=== PATIENT | female | born 1935 | race American Indian/Alaskan Native ===

== ENCOUNTER 2018-09-22 17:04 | Inpatient (IN) | payer MEDICARE ==
--- NOTE | 2018-09-22 17:55 | Emergency Department Report ---
ED General Adult HPI - General Chief complaint: Arrhythmia/Palpitations Stated complaint: DOC ORDERED/HEART RATE SLOW Time Seen by Provider: 09/22/18 17:42 Source: patient, family, RN notes reviewed Mode of arrival: Ambulatory Limitations: No Limitations - History of Present Illness Initial comments: Primary care Dr.: Dr Clifton Cardiology: Dr Cindy Rodriguez This is an 82-year-old female. The patient is not known to this provider previously. She may have a history of hypertension. Was recently started on metoprolol, but apparently is not taking this medication. She is sent to the emergency room for evaluation by her private snack bar cook for evaluation of high-grade heart block. The patient at this moment denies headache, neck pain, chest pain, abdominal pain, shortness of breath, weakness, dizziness, numbness, does admit to dysuria, but otherwise denies symptoms at this time. She's not sure what her bradycardia started. -: unknown Severity scale (0 -10): 0 Consistency: constant Improves with: none Worsens with: none Associated Symptoms: denies other symptoms - Related Data Previous Rx's Medication Instructions Recorded Last Taken Type Acetaminophen [Acetaminophen TAB] 650 mg PO Q4H PRN tablet 09/23/18 Unknown Rx amLODIPine [Norvasc] 5 mg PO QDAY tablet 09/23/18 Unknown Rx Allergies Allergy/AdvReac Type Severity Reaction Status Date / Time No Known Allergies Allergy Verified 09/22/18 22:14 ED Review of Systems ROS: Stated complaint: DOC ORDERED/HEART RATE SLOW Other details as noted in HPI Constitutional: denies: fever Eyes: denies: vision change ENT: denies: epistaxis Respiratory: denies: cough Cardiovascular: denies: chest pain, palpitations Gastrointestinal: denies: abdominal pain, nausea, vomiting Genitourinary: dysuria Musculoskeletal: denies: back pain Skin: denies: lesions Neurological: denies: weakness, numbness, paresthesias, confusion Psychiatric: denies: anxiety ED Past Medical Hx - Social History Smoking Status: Unknown if ever smoked Substance Use Type: None - Medications Home Medications: Home Medications Medication Instructions Recorded Confirmed Last Taken Type Acetaminophen [Acetaminophen TAB] 650 mg PO Q4H PRN tablet 09/23/18 Unknown Rx amLODIPine [Norvasc] 5 mg PO QDAY tablet 09/23/18 Unknown Rx ED Physical Exam - General Limitations: No Limitations General appearance: alert, in no apparent distress - Head Head exam: Present: atraumatic, normocephalic - Eye Eye exam: Present: normal appearance, EOMI. Absent: nystagmus - ENT ENT exam: Present: normal exam, normal orophraynx, mucous membranes moist - Neck Neck exam: Present: normal inspection, full ROM. Absent: tenderness, meningismus - Respiratory Respiratory exam: Present: normal lung sounds bilaterally. Absent: respiratory distress - Cardiovascular Cardiovascular Exam: Present: bradycardia. Absent: tachycardia, systolic murmur, diastolic murmur, rubs, gallop - GI/Abdominal GI/Abdominal exam: Present: soft, normal bowel sounds. Absent: distended, tend erness, guarding, rigid - Extremities Exam Extremities exam: Present: normal inspection, full ROM, other (2+ pulses noted in the bilateral upper, lower extremities. Compartments soft. No long bony tenderness. The pelvis is stable.). Absent: pedal edema, joint swelling, calf tenderness - Back Exam Back exam: Present: normal inspection, full ROM. Absent: tenderness, CVA tenderness (R), paraspinal tenderness, vertebral tenderness - Neurological Exam Neurological exam: Present: alert, other (Extraocular movements intact. Tongue midline. No facial droop. Facial sensation intact to light touch in the V1, V2, V3 distribution bilaterally. 5 and 5 strength in 4 extremities.. Sensation is intact to light touch in 4 extremities.). Absent: motor sensory deficit - Psychiatric Psychiatric exam: Present: normal affect, normal mood - Skin Skin exam: Present: warm, dry, intact, normal color. Absent: rash ED Course Vital Signs 09/22/18 09/22/18 09/22/18 17:19 19:39 21:00 Temperature 98.2 F 98 F Pulse Rate 40 L 40 L 107 H Pulse Rate [ Left Radial] Respiratory 18 14 23 Rate Blood Pressure 158/74 Blood Pressure 123/66 [Right] O2 Sat by Pulse 100 99 92 Oximetry 09/22/18 09/22/18 09/23/18 22:00 23:00 00:00 Temperature Pulse Rate 40 L 38 L 40 L Pulse Rate [ Left Radial] Respiratory 16 16 13 Rate Blood Pressure 164/70 134/69 176/71 Blood Pressure [Right] O2 Sat by Pulse Oximetry 09/23/18 09/23/18 09/23/18 01:00 03:00 04:00 Temperature Pulse Rate 39 L 38 L 39 L Pulse Rate [ Left Radial] Respiratory 14 15 14 Rate Blood Pressure 131/80 191/65 146/76 Blood Pressure [Right] O2 Sat by Pulse 100 100 Oximetry 09/23/18 09/23/18 09/23/18 06:00 07:00 08:00 Temperature Pulse Rate 39 L 37 L Pulse Rate [ Left Radial] Respiratory 17 12 Rate Blood Pressure 119/79 89/41 212/62 Blood Pressure [Right] O2 Sat by Pulse 100 99 100 Oximetry 09/23/18 09/23/18 09/23/18 09:00 10:00 11:00 Temperature Pulse Rate 39 L Pulse Rate [ Left Radial] Respiratory 11 L Rate Blood Pressure 149/69 124/66 124/66 Blood Pressure [Right] O2 Sat by Pulse 100 100 99 Oximetry 09/23/18 09/23/18 09/23/18 12:00 13:00 14:00 Temperature Pulse Rate 38 L 38 L Pulse Rate [ 45 L Left Radial] Respiratory 12 13 20 Rate Blood Pressure 124/66 110/66 Blood Pressure [Right] O2 Sat by Pulse 100 100 Oximetry 09/23/18 09/23/18 09/23/18 15:28 16:00 17:00 Temperature Pulse Rate 42 L 75 Pulse Rate [ Left Radial] Respiratory 14 17 Rate Blood Pressure 110/66 126/55 126/55 Blood Pressure [Right] O2 Sat by Pulse 87 Oximetry 09/23/18 09/23/18 09/23/18 18:00 18:56 21:08 Temperature 98.0 F 98.5 F Pulse Rate 44 L 48 L 47 L Pulse Rate [ Left Radial] Respiratory 20 17 Rate Blood Pressure 126/55 Blood Pressure 120/78 [Right] O2 Sat by Pulse 99 99 Oximetry - Reevaluation(s) Reevaluation #1: 09/22/18 19:11 Differential diagnosis, including but not limited to: Hyperkalemia, hypokalemia, thyroid derangement, electrolyte derangement, conduction system derangement Assessment and plan: 82-year-old female with asymptomatic bradycardia, high- grade heart block, suspect Mobitz type II heart block versus complete heart block. The patient is afebrile, with reassuring vital signs, and is currently in no acute distress. Her snack bar cook has been contacted, and he will follow in consultation. Screening laboratory studies pending, we will admit to the medical service once her laboratory studies have resulted. Given high-grade heart block, will require placement into the intensive care unit or stepdown unit for close cardiac monitoring. Reevaluation #2: 09/22/18 19:41 Dr Casper Cedeno to admit to medical service Dr Len Mathew agrees with placement into the IMCU Potassium 5.3, hemolyzed as per the laboratory. Reevaluation #3: 09/22/18 19:43 X-ray of the chest appears to be unremarkable for acute disease. We will defer to the inpatient team to follow-up on the patient's urinalysis. ED Medical Decision Making - Lab Data Result diagrams: 09/22/18 17:34 09/23/18 08:09 Vital Signs 09/22/18 17:19 Temperature 98.2 F Pulse Rate 40 L Respiratory 18 Rate O2 Sat by Pulse 100 Oximetry Lab Results 09/22/18 09/22/18 09/22/18 Range/Units 17:34 17:34 17:34 WBC 5.6 (4.5-11.0) K/mm3 RBC 3.71 (3.65-5.03) M/mm3 Hgb 12.0 (10.1-14.3) gm/dl Hct 36.3 (30.3-42.9) % MCV 98 H (79-97) fl MCH 32 (28-32) pg MCHC 33 (30-34) % RDW 14.9 (13.2-15.2) % Plt Count 283 (140-440) K/mm3 PT 13.3 (12.2-14.9) Sec. INR 0.95 (0.87-1.13) APTT 30.9 (24.2-36.6) Sec. Sodium 144 (137-145) mmol/L Chloride 104.5 (98-107) mmol/L Carbon Dioxide 25 (22-30) mmol/L BUN 24 H (7-17) mg/dL Creatinine 1.1 (0.7-1.2) mg/dL Estimated GFR 48 ml/min BUN/Creatinine Ratio 22 % Glucose 85 (65-100) mg/dL Calcium 9.1 (8.4-10.2) mg/dL Phosphorus 4.10 (2.5-4.5) mg/dL Magnesium 2.50 H (1.7-2.3) mg/dL Troponin T < 0.010 (0.00-0.029) ng/mL TSH (0.270-4.200) mlU/mL 09/22/18 Range/Units 18:03 WBC (4.5-11.0) K/mm3 RBC (3.65-5.03) M/mm3 Hgb (10.1-14.3) gm/dl Hct (30.3-42.9) % MCV (79-97) fl MCH (28-32) pg MCHC (30-34) % RDW (13.2-15.2) % Plt Count (140-440) K/mm3 PT (12.2-14.9) Sec. INR (0.87-1.13) APTT (24.2-36.6) Sec. Sodium (137-145) mmol/L Chloride (98-107) mmol/L Carbon Dioxide (22-30) mmol/L BUN (7-17) mg/dL Creatinine (0.7-1.2) mg/dL Estimated GFR ml/min BUN/Creatinine Ratio % Glucose (65-100) mg/dL Calcium (8.4-10.2) mg/dL Phosphorus (2.5-4.5) mg/dL Magnesium (1.7-2.3) mg/dL Troponin T (0.00-0.029) ng/mL TSH 3.050 (0.270-4.200) mlU/mL - EKG Data 09/22/18 19:08 EKG shows atrial rate of approximately 75 bpm, ventricular rate, 40 bpm, borderline rightward axis, wide QRS, right bundle branch block, high degree block suggested, suspect complete, third-degree heart block. Not consistent with ST elevation myocardial infarction. - Radiology Data Radiology results: pending Critical care attestation.: If time is entered above; I have spent that time in minutes in the direct care of this critically ill patient, excluding procedure time. ED Disposition Clinical Impression: Heart block Disposition: OP ADMIT IP TO THIS HOSP Is pt being admited?: Yes Condition: Good
[2018-09-22 18:14] LABS: Hematocrit 36.3 % (30.3-42.9); Mean Corpuscular HGB Conc 33 % (30-34); Mean Corpuscular Volume 98 fl (79-97); Platelet Count 283 K/mm3 (140-440); Red Blood Count 3.71 M/mm3 (3.65-5.03); Red Cell Distribution Width 14.9 % (13.2-15.2)
[2018-09-22 18:26] LABS: INR 0.95 (0.87-1.13); Partial Thromboplastin Time 30.9 Sec. (24.2-36.6)
--- NOTE | 2018-09-22 20:39 | XRay Report ---
PROCEDURE: Chest. TECHNIQUE: Single frontal view. HISTORY: Cough, heart block. COMPARISONS: None. FINDINGS: The heart size is mildly enlarged. There is calcification in the thoracic aorta. The lungs are clear and well expanded. There are no pleural effusions. The soft tissues and regional skeleton are unremar kable. IMPRESSION: No evidence of acute disease. This document is electronically signed by Nik Marques MD., September 22 2018 08:37:44 PM ET
[2018-09-22 20:40] LABS: BUN/Creatinine Ratio TNR; Blood Urea Nitrogen TNR mg/dL (7-17)
[2018-09-22 20:41] LABS: Calcium TNR mg/dL (8.4-10.2); Hemolysis Index TNR
[2018-09-22 21:34] LABS: Bacteria,Urine 1+ /HPF (Negative); Bilirubin,Urine NEG (Negative); Blood,Urine NEG (Negative); Color,Urine Colorless (Yellow); Protein,Urine <15 mg/dL mg/dL (Negative); Urobilinogen,Urine < 2.0 mg/dL (<2.0)
[2018-09-22 21:54] LABS: Albumin 4.2 g/dL (3.9-5); Calcium 9.1 mg/dL (8.4-10.2)
[2018-09-22] MEDS ORDERED: ZOFRAN IV PRN (22:08)
[2018-09-22] MEDS ORDERED: NORCO 5/325 PO PRN (22:08)
[2018-09-22] MEDS ORDERED: TYLENOL PO PRN (22:08)
[2018-09-22] MEDS ORDERED: SODIUM CHLORIDE FLUSH SYRINGE 10 ML IV PRN (22:08)
[2018-09-22] MEDS ORDERED: NACL 0.45% 500 ML IV SCH (23:00)
--- NOTE | 2018-09-22 23:16 | History and Physical Report ---
History of Present Illness Date of examination: 09/22/18 Date of admission: 09/22/18 19:42 Chief complaint: "My doctor sent me here" History of present illness: Patient is a 82-year-old -Citizen Of [place] female with history of hypertension who was sent to the ER by her primary care doctor on account of abnormal EKG finding. Patient stated that she went for her regular clinic checkup and during her evaluation, she was found to have abnormal EKG finding for which she was sent to the ER for further evaluation. She stated that for the past few days, that her equilibrium has been off. She denies headache, nausea, vomiting, lightheadedness, syncope or loss of consciousness. No chest pain, shortness of breath, palpitation, cough, sore throat, runny nose, fever, chills, leg swelling, orthopnea or PND. No abdominal pain, constipation, diarrhea, dysuria or frequency. In the ED, her EKG was suggestive of high-grade heart block Past History Past Medical History: hypertension Past Surgical History: No surgical history Social history: smoking (patient has 20 years history of cigarette smoking. She currently smokes few sticks per day. She denies alcohol or illicit drug use) Family history: other (reviewed and noncontributory) Medications and Allergies Allergies Allergy/AdvReac Type Severity Reaction Status Date / Time No Known Allergies Allergy Verified 09/22/18 22:14 Home Medications Medication Instructions Recorded Confirmed Last Taken Type Metoprolol [Lopressor] 25 mg PO DAILY 09/22/18 09/22/18 Unknown History Active Meds: Active Medications Acetaminophen (Tylenol) 650 mg PO Q4H PRN PRN Reason: Pain MILD(1-3)/Fever >100.5/ANSARI Acetaminophen/Hydrocodone Bitart ([place] 5/325) 1 each PO Q6H PRN PRN Reason: Pain, Moderate (4-6) Amlodipine Besylate (Norvasc) 5 mg PO QDAY ARVIND Sodium Chloride (Nacl 0.45%) 500 mls @ 75 mls/hr IV DIRECT ARVIND Ondansetron HCl (Zofran) 4 mg IV Q8H PRN PRN Reason: Nausea And Vomiting Sodium Chloride (Sodium Chloride Flush Syringe 10 Ml) 10 ml IV BID ARVIND Sodium Chloride (Sodium Chloride Flush Syringe 10 Ml) 10 ml IV PRN PRN PRN Reason: LINE FLUSH Review of Systems All systems: negative (except as documented in the HPI, all other systems were reviewed and negative) Exam - Constitutional Vitals: Temp Pulse Resp BP Pulse Ox 98 F 40 L 16 164/70 92 09/22/18 19:39 09/22/18 22:00 09/22/18 22:00 09/22/18 22:00 09/22/18 21:00 General appearance: Present: no acute distress, well-nourished - EENT Eyes: Present: PERRL ENT: hearing intact, clear oral mucosa - Neck Neck: Present: supple, normal ROM - Respiratory Respiratory effort: normal Respiratory: bilateral: CTA - Cardiovascular Rhythm: regularly irregular (with bradycardia) Heart Sounds: Present: S1 & S2. Absent: rub, click - Extremities Extremities: pulses symmetrical, No edema Peripheral Pulses: within normal limits - Abdominal General gastrointestinal: Present: soft, non-tender, non-distended, normal bowel sounds Female genitourinary: Present: deferred - Integumentary Integumentary: Present: clear, warm, dry - Musculoskeletal Musculoskeletal: gait normal, strength equal bilaterally - Psychiatric Psychiatric: appropriate mood/affect, intact judgment & insight - Neurologic Neurologic: CNII-XII intact, moves all extremities Results - Labs CBC & Chem 7: 09/22/18 17:34 09/22/18 21:10 Labs: Laboratory Last Values WBC 5.6 K/mm3 (4.5-11.0) 09/22/18 17:34 RBC 3.71 M/mm3 (3.65-5.03) 09/22/18 17:34 Hgb 12.0 gm/dl (10.1-14.3) 09/22/18 17:34 Hct 36.3 % (30.3-42.9) 09/22/18 17:34 MCV 98 fl (79-97) H 09/22/18 17:34 MCH 32 pg (28-32) 09/22/18 17:34 MCHC 33 % (30-34) 09/22/18 17:34 RDW 14.9 % (13.2-15.2) 09/22/18 17:34 Plt Count 283 K/mm3 (140-440) 09/22/18 17:34 PT 13.3 Sec. (12.2-14.9) 09/22/18 17:34 INR 0.95 (0.87-1.13) 09/22/18 17:34 APTT 30.9 Sec. (24.2-36.6) 09/22/18 17:34 Sodium 147 mmol/L (137-145) H 09/22/18 21:10 Potassium 4.3 mmol/L (3.6-5.0) 09/22/18 21:10 Chloride 105.7 mmol/L (98-107) 09/22/18 21:10 Carbon Dioxide 31 mmol/L (22-30) H 09/22/18 21:10 Anion Gap 15 mmol/L 09/22/18 21:10 BUN 21 mg/dL (7-17) H 09/22/18 21:10 Creatinine 1.1 mg/dL (0.7-1.2) 09/22/18 21:10 Estimated GFR 58 ml/min 09/22/18 21:10 BUN/Creatinine Ratio 19 % 09/22/18 21:10 Glucose 97 mg/dL (65-100) 09/22/18 21:10 Calcium 9.1 mg/dL (8.4-10.2) 09/22/18 21:10 Phosphorus 4.10 mg/dL (2.5-4.5) 09/22/18 17:34 Magnesium 2.50 mg/dL (1.7-2.3) H 09/22/18 17:34 Total Bilirubin 0.50 mg/dL (0.1-1.2) 09/22/18 21:10 AST 24 units/L (5-40) 09/22/18 21:10 ALT 43 units/L (7-56) 09/22/18 21:10 Alkaline Phosphatase 109 units/L (35-129) 09/22/18 21:10 Total Creatine Kinase TNR 09/22/18 17:34 Troponin T < 0.010 ng/mL (0.00-0.029) 09/22/18 17:34 Total Protein 7.4 g/dL (6.3-8.2) 09/22/18 21:10 Albumin 4.2 g/dL (3.9-5) 09/22/18 21:10 Albumin/Globulin Ratio 1.3 % 09/22/18 21:10 TSH 3.050 mlU/mL (0.270-4.200) 09/22/18 18:03 Urine Color Colorless (Yellow) 09/22/18 21:02 Urine Turbidity Clear (Clear) 09/22/18 21:02 Urine pH 9.0 (5.0-7.0) H 09/22/18 21:02 Ur Specific [place] 1.006 (1.003-1.030) 09/22/18 21:02 Urine Protein <15 mg/dl mg/dL (Negative) 09/22/18 21:02 Urine Glucose (UA) Neg mg/dL (Negative) 09/22/18 21:02 Urine Ketones Neg mg/dL (Negative) 09/22/18 21:02 Urine Blood Neg (Negative) 09/22/18 21: Urine Nitrite Neg (Negative) 09/22/18 21: Urine Bilirubin Neg (Negative) 09/22/18 21: Urine Urobilinogen < 2.0 mg/dL (<2.0) 09/22/18 21:02 Ur Leukocyte Esterase Neg (Negative) 09/22/18 21:02 Urine WBC (Auto) 2.0 /HPF (0.0-6.0) 09/22/18 21:02 Urine RBC (Auto) 1.0 /HPF (0.0-6.0) 09/22/18 21:02 U Epithel Cells (Auto) 1.0 /HPF (0-13.0) 09/22/18 21:02 Urine Bacteria (Auto) 1+ /HPF (Negative) 09/22/18 21:02 Assessment and Plan Assessment and plan: AV block, suspected high degree -Continue serial troponin level and EKG monitoring -Transcutaneous pacing pads in place -TSH level normal -Cardiology consulted Hypertension -Uncontrolled, on antihypertensive Hypernatremia -Probably secondary to volume depletion -On IV fluid, will monitor level Hypermagnesemia -On IV fluid, will monitor level Tobacco abuse -Patient counseled on cessation DVT prophylaxis with SCD Disposition: Patient will be admitted to the stepdown unit Time spent: 40 minutes
[2018-09-22] MEDS ORDERED: NACL 0.45% 1000 ML 1,000 ML IV ONE (23:46)
[2018-09-23 09:03] LABS: BUN/Creatinine Ratio 17; Blood Urea Nitrogen 17 mg/dL (7-17); Calcium 8.8 mg/dL (8.4-10.2); Hemolysis Index 10
[2018-09-23] MEDS ORDERED: SODIUM CHLORIDE FLUSH SYRINGE 10 ML IV SCH (10:00)
[2018-09-23] MEDS ORDERED: NORVASC PO SCH (10:00)
--- NOTE | 2018-09-23 14:49 | Progress Note ---
Assessment and Plan Assessment and plan: AV block -Continue serial troponin level and EKG monitoring -Transcutaneous pacing pads in place -TSH level normal -Cardiology consulted Hypertension -Uncontrolled, on antihypertensive Hypernatremia -Probably secondary to volume depletion -On IV fluid, will monitor level Hypermagnesemia -On IV fluid, will monitor level Tobacco abuse -Patient counseled on cessation DVT prophylaxis with SCD History Interval history: No new issues overnight. Hospitalist Physical - Constitutional Vitals: Temp Pulse Resp BP Pulse Ox 98 F 38 L 13 110/66 100 09/22/18 19:39 09/23/18 13:00 09/23/18 13:00 09/23/18 13:00 09/23/18 12:00 General appearance: Present: no acute distress, well-nourished - EENT Eyes: Present: PERRL, EOM intact ENT: hearing intact, clear oral mucosa, dentition normal - Neck Neck: Present: supple, normal ROM - Respiratory Respiratory effort: normal Respiratory: bilateral: CTA - Cardiovascular Rhythm: regular Heart Sounds: Present: S1 & S2. Absent: gallop, rub - Extremities Extremities: no ischemia, No edema, Full ROM - Abdominal General gastrointestinal: soft, non-tender, non-distended, normal bowel sounds - Integumentary Integumentary: Present: clear, warm, dry - Neurologic Neurologic: CNII-XII intact, moves all extremities Results - Labs CBC & Chem 7: 09/22/18 17:34 09/23/18 08:09 Labs: Laboratory Last Values WBC 5.6 K/mm3 (4.5-11.0) 09/22/18 17:34 RBC 3.71 M/mm3 (3.65-5.03) 09/22/18 17:34 Hgb 12.0 gm/dl (10.1-14.3) 09/22/18 17:34 Hct 36.3 % (30.3-42.9) 09/22/18 17:34 MCV 98 fl (79-97) H 09/22/18 17:34 MCH 32 pg (28-32) 09/22/18 17:34 MCHC 33 % (30-34) 09/22/18 17:34 RDW 14.9 % (13.2-15.2) 09/22/18 17:34 Plt Count 283 K/mm3 (140-440) 09/22/18 17:34 PT 13.3 Sec. (12.2-14.9) 09/22/18 17:34 INR 0.95 (0.87-1.13) 09/22/18 17:34 APTT 30.9 Sec. (24.2-36.6) 09/22/18 17:34 Sodium 142 mmol/L (137-145) 09/23/18 08:09 Potassium 3.7 mmol/L (3.6-5.0) 09/23/18 08:09 Chloride 101.0 mmol/L (98-107) 09/23/18 08:09 Carbon Dioxide 27 mmol/L (22-30) 09/23/18 08:09 Anion Gap 18 mmol/L 09/23/18 08:09 BUN 17 mg/dL (7-17) 09/23/18 08:09 Creatinine 1.0 mg/dL (0.7-1.2) 09/23/18 08:09 Estimated GFR > 60 ml/min 09/23/18 08:09 BUN/Creatinine Ratio 17 % 09/23/18 08:09 Glucose 84 mg/dL (65-100) 09/23/18 08:09 Calcium 8.8 mg/dL (8.4-10.2) 09/23/18 08:09 Phosphorus 4.10 mg/dL (2.5-4.5) 09/22/18 17:34 Magnesium 2.20 mg/dL (1.7-2.3) 09/23/18 08:09 Total Bilirubin 0.50 mg/dL (0.1-1.2) 09/22/18 21:10 AST 24 units/L (5-40) 09/22/18 21:10 ALT 43 units/L (7-56) 09/22/18 21:10 Alkaline Phosphatase 109 units/L (35-129) 09/22/18 21:10 Total Creatine Kinase TNR 09/22/18 17:34 Troponin T < 0.010 ng/mL (0.00-0.029) 09/23/18 00:58 Total Protein 7.4 g/dL (6.3-8.2) 09/22/18 21:10 Albumin 4.2 g/dL (3.9-5) 09/22/18 21:10 Albumin/Globulin Ratio 1.3 % 09/22/18 21:10 TSH 3.050 mlU/mL (0.270-4.200) 09/22/18 18:03 Urine Color Colorless (Yellow) 09/22/18 21:02 Urine Turbidity Clear (Clear) 09/22/18 21:02 Urine pH 9.0 (5.0-7.0) H 09/22/18 21:02 Ur Specific [place] 1.006 (1.003-1.030) 09/22/18 21:02 Urine Protein <15 mg/dl mg/dL (Negative) 09/22/18 21:02 Urine Glucose (UA) Neg mg/dL (Negative) 09/22/18 21:02 Urine Ketones Neg mg/dL (Negative) 09/22/18 21:02 Urine Blood Neg (Negative) 09/22/18 21:02 Urine Nitrite Neg (Negative) 09/22/18 21:02 Urine Bilirubin Neg (Negative) 09/22/18 21:02 Urine Urobilinogen < 2.0 mg/dL (<2.0) 09/22/18 21:02 Ur Leukocyte Esterase Neg (Negative) 09/22/18 21:02 Urine WBC (Auto) 2.0 /HPF (0.0-6.0) 09/22/18 21:02 Urine RBC (Auto) 1.0 /HPF (0.0-6.0) 09/22/18 21:02 U Epithel Cells (Auto) 1.0 /HPF (0-13.0) 09/22/18 21:02 Urine Bacteria (Auto) 1+ /HPF (Negative) 09/22/18 21:02 Active Medications - Current Medications Current Medications: Generic Name Dose Route Start Last Admin Trade Name Freq PRN Reason Stop Dose Admin Acetaminophen 650 mg 09/22/18 22:08 Tylenol PO Q4H PRN Pain MILD(1-3)/Fever >100.5/ANSARI Acetaminophen/Hydrocodone Bitart 1 each 09/22/18 22:08 [place] 5/325 PO Q6H PRN Pain, Moderate (4-6) Amlodipine Besylate 5 mg 09/23/18 10:00 Norvasc PO QDAY ARVIND Sodium Chloride 500 mls @ 75 mls/hr 09/22/18 23:00 09/23/18 00:48 Nacl 0.45% IV 75 mls/hr DIRECT ARVIND Administration Ondansetron HCl 4 mg 09/22/18 22:08 Zofran IV Q8H PRN Nausea And Vomiting Sodium Chloride 10 ml 09/23/18 10:00 Sodium Chloride Flush Syringe 10 Ml IV BID ARVIND Sodium Chloride 10 ml 09/22/18 22:08 Sodium Chloride Flush Syringe 10 Ml IV PRN PRN LINE FLUSH
--- NOTE | 2018-09-23 14:50 | Consultation ---
History of Present Illness Consult date: 09/23/18 Consult reason: bradycardia History of present illness: 82-year-old woman who is admitted to the hospital with symptomatic bradycardia. Patient apparently has been living alone for several years, and on a recent visit the patient's daughter noted what she describes as a deterioration in the patient's short-term memory, as well as generalized weakness and intermittent episodes of "passing out". She ultimately took the patient to see her PCP yesterday, where an ECG demonstrated severe bradycardia with a heart rate of 40, and A-V dissociation. Patient was directed to the emergency room to be evaluated for admission and workup. The patient otherwise looks comfortable with no shortness of breath or chest pain. Blood pressure is stable 120s to 140s. Lab work exam shows a normal potassium of 4.3, magnesium of 2.5, and normal TSH. On the medication profile, the patient was ostensibly on 25 mg of metoprolol, but was apparently noncom pliant and not recently taken the medication. Past History Past Medical History: hypertension Past Surgical History: No surgical history Social history: smoking (patient has 20 years history of cigarette smoking. She currently smokes few sticks per day. She denies alcohol or illicit drug use) Family history: other (reviewed and noncontributory) Medications and Allergies Allergies Allergy/AdvReac Type Severity Reaction Status Date / Time No Known Allergies Allergy Verified 09/22/18 22:14 Home Medications Medication Instructions Recorded Confirmed Last Taken Type Metoprolol [Lopressor] 25 mg PO DAILY 09/22/18 09/22/18 Unknown History Active Meds: Active Medications Acetaminophen (Tylenol) 650 mg PO Q4H PRN PRN Reason: Pain MILD(1-3)/Fever >100.5/ANSARI Acetaminophen/Hydrocodone Bitart ([place] 5/325) 1 each PO Q6H PRN PRN Reason: Pain, Moderate (4-6) Amlodipine Besylate (Norvasc) 5 mg PO QDAY ARVIND Sodium Chloride (Nacl 0.45%) 500 mls @ 75 mls/hr IV DIRECT ARVIND Last Admin: 09/23/18 00:48 Dose: 75 mls/hr Documented by: Ondansetron HCl (Zofran) 4 mg IV Q8H PRN PRN Reason: Nausea And Vomiting Sodium Chloride (Sodium Chloride Flush Syringe 10 Ml) 10 ml IV BID ARVIND Sodium Chloride (Sodium Chloride Flush Syringe 10 Ml) 10 ml IV PRN PRN PRN Reason: LINE FLUSH Review of Systems ROS unobtainable: due to mental status Physical Examination Vital Signs Temp Pulse Resp Pulse Ox 98.2 F 40 L 18 100 09/22/18 17:19 09/22/18 17:19 09/22/18 17:19 09/22/18 17:19 General appearance: no acute distress HEENT: Positive: PERRL Neck: Positive: neck supple Cardiac: Positive: irregularly irregular Lungs: Positive: Decreased Breath Sounds Neuro: Positive: Grossly Intact Abdomen: Positive: Soft Female genitourinary: deferred Skin: Positive: Clear Extremities: Absent: edema Results 09/22/18 17:34 09/23/18 08:09 Cardiac Enzymes 09/22/18 Range/Units 21:10 AST 24 (5-40) units/L Coagulation 09/22/18 Range/Units 17:34 PT 13.3 (12.2-14.9) Sec. INR 0.95 (0.87-1.13) APTT 30.9 (24.2-36.6) Sec. CBC 09/22/18 Range/Units 17:34 WBC 5.6 (4.5-11.0) K/mm3 RBC 3.71 (3.65-5.03) M/mm3 Hgb 12.0 (10.1-14.3) gm/dl Hct 36.3 (30.3-42.9) % Plt Count 283 (140-440) K/mm3 Comprehensive Metabolic Panel 09/22/18 09/22/18 09/23/18 Range/Units 17:34 21:10 08:09 Sodium TNR 147 H 142 Potassium TNR 4.3 3.7 Chloride TNR 105.7 101.0 Carbon Dioxide TNR 31 H 27 BUN TNR 21 H 17 Creatinine TNR 1.1 1.0 Glucose TNR 97 84 Calcium TNR 9.1 8.8 AST 24 (5-40) units/L ALT 43 (7-56) units/L Alkaline Phosphatase 109 (35-129) units/L Total Protein 7.4 (6.3-8.2) g/dL Albumin 4.2 (3.9-5) g/dL EKG interpretations - Telemetry EKG Rhythm: Sinus Rhythm (with A-V dissociation and severe bradycardia) Assessment and Plan Presentation is consistent with severe bradycardia, AV dissociation with high- grade AV block. Patient may ultimately need a dual-chamber pacemaker. We will obtain an echocardiogram for left ventricular function assessment.
--- NOTE | 2018-09-23 14:54 | Consultation ---
History of Present Illness Consult date: 09/23/18 Reason for consult: chest pain, COPD History of present illness: PULMONARY AND CRITIC AL CARE CONSULTATION. THANK YOU FOR ASKING US TO PARTICIPATE IN THE CARE OF THIS PATIENT. Patient is a 82-year-old -[place] female with history of hypertension who was sent to the ER by her primary care doctor on account of abnormal EKG finding. Patient stated that she went for her regular clinic checkup and during her evaluation, she was found to have abnormal EKG finding for which she was sent to the ER for further evaluation. She stated that for the past few days, that her equilibrium has been off. She denies headache, nausea, vomiting, lightheadedness, syncope or loss of consciousness. No chest pain, shortness of breath, palpitation, cough, sore throat, runny nose, fever, chills, leg swelling, orthopnea or PND. No abdominal pain, constipation, diarrhea, dysuria or frequency. In the ED, her EKG was suggestive of high-grade heart block Patient has heavy history of smoking. Patient has history of COPD. Counselled to stop smoking. Past History Past Medical History: COPD, hypertension Past Surgical History: No surgical history Social history: smoking (patient has 20 years history of cigarette smoking. She currently smokes few sticks per day. She denies alcohol or illicit drug use) Family history: other (reviewed and noncontributory) Medications and Allergies Allergies Allergy/AdvReac Type Severity Reaction Status Date / Time No Known Allergies Allergy Verified 09/22/18 22:14 Home Medications Medication Instructions Recorded Confirmed Last Taken Type Acetaminophen [Acetaminophen TAB] 650 mg PO Q4H PRN tablet 09/23/18 Unknown Rx amLODIPine [Norvasc] 5 mg PO QDAY tablet 09/23/18 Unknown Rx Active Meds: Active Medications Acetaminophen (Tylenol) 650 mg PO Q4H PRN PRN Reason: Pain MILD(1-3)/Fever >100.5/ANSARI Acetaminophen/Hydrocodone Bitart ([place] 5/325) 1 each PO Q6H PRN PRN Reason: Pain, Moderate (4-6) Amlodipine Besylate (Norvasc) 5 mg PO QDAY ARVIND Sodium Chloride (Nacl 0.45%) 500 mls @ 75 mls/hr IV DIRECT ARVIND Last Admin: 09/23/18 00:48 Dose: 75 mls/hr Documented by: Ondansetron HCl (Zofran) 4 mg IV Q8H PRN PRN Reason: Nausea And Vomiting Sodium Chloride (Sodium Chloride Flush Syringe 10 Ml) 10 ml IV BID ARVIND Sodium Chloride (Sodium Chloride Flush Syringe 10 Ml) 10 ml IV PRN PRN PRN Reason: LINE FLUSH Review of Systems All systems: negative Physical Examination Vital signs: Vital Signs Temp Pulse Resp Pulse Ox 98.2 F 40 L 18 100 09/22/18 17:19 09/22/18 17:19 09/22/18 17:19 09/22/18 17:19 General appearance: no acute distress, alert Eyes: non-icteric ENT: oropharynx dry Neck: supple, no JVD Ascultation: Bilateral: diminished breath sounds, other (Prolonged expiratory phase.) Cardiovascular: irregular rhythm, other (Nehemias cardia. High grade heart block.) Gastrointestinal: normoactive bowel sounds, soft, non-tender Integumentary: normal Extremities: no cyanosis, no edema Musculoskeletal: no deformities Gait: other (Patient presently resting in the bed.) normal mental status, non-focal exam, pupils equal and round, CN II-XII normal anxious Results - Laboratory Findings CBC and BMP: 09/22/18 17:34 09/23/18 08:09 PT/INR, D-dimer PT 13.3 Sec. (12.2-14.9) 09/22/18 17:34 INR 0.95 (0.87-1.13) 09/22/18 17:34 Abnormal lab findings: Abnormal Labs 09/22/18 09/22/18 09/22/18 17:34 17:34 21:02 MCV 98 H Sodium Carbon Dioxide BUN Magnesium 2.50 H Urine pH 9.0 H 09/22/18 21:10 MCV Sodium 147 H Carbon Dioxide 31 H BUN 21 H Magnesium Urine pH - Diagnostic Findings Chest x-ray: report reviewed (No acute pulmonary infiltrates.), image reviewed Assessment and Plan Patient is a 82-year-old -[place] female with history of hypertension who was sent to the ER by her primary care doctor on account of abnormal EKG finding. Patient stated that she went for her regular clinic checkup and during her evaluation, she was found to have abnormal EKG finding for which she was sent to the ER for further evaluation. She stated that for the past few days, that her equilibrium has been off. She denies headache, nausea, vomiting, lightheadedness, syncope or loss of consciousness. No chest pain, shortness of breath, palpitation, cough, sore throat, runny nose, fever, chills, leg swel ling, orthopnea or PND. No abdominal pain, constipation, diarrhea, dysuria or frequency. In the ED, her EKG was suggestive of high-grade heart block Patient has heavy history of smoking. Patient has history of COPD. Counselled to stop smoking. - Patient Problems (1) Heart block Status: Acute Plan to address problem: Management as per cardiology. (2) Tobacco use disorder Status: Acute Plan to address problem: Counselled to stop smoking. (3) COPD (chronic obstructive pulmonary disease) Status: Acute Plan to address problem: Xopenex/atrovent aerosol treatments q 8 hours prn for shortness of breath. ABGs on room air. PFTs as out patient.
--- NOTE | 2018-09-23 16:15 | Discharge Summary ---
Providers - Providers Date of Admission: 09/22/18 19:42 Date of discharge: 09/23/18 Attending physician: ML GARNER 09/22/18 17:54 Consult to Physician [CONS] Urgent Comment: Consulting Provider: YASMINE RIDLEY Physician Instructions: Reason For Exam: heart block 09/22/18 18:59 Consult to Physician [CONS] Urgent Comment: Consulting Provider: MANPREET SOMERS Physician Instructions: Reason For Exam: complete jheart block [facility] Reason for admission: symptomatic bradycardia Condition: Good Hospital course: Patient is a 82-year-old -[place] female with history of hypertension who was sent to the ER by her primary care doctor because of an abnormal EKG finding. Patient stated that she went for her regular clinic checkup and during her evaluation, she was found to have abnormal EKG finding for which she was sent to the ER for further evaluation. She stated that for the past few days, that her equilibrium has been off. She denies headache, nausea, vomiting, lightheadedness, syncope or loss of consciousness. No chest pain, shortness of breath, palpitation, cough, sore throat, runny nose, fever, chills, leg swelling, orthopnea or PND. No abdominal pain, constipation, diarrhea, dysuria or frequency. In the ED, her EKG was suggestive of heart block. The patient was admmitted with dx of symptomatic bradycardia. ECG demonstrated severe bradycardia with a heart rate of 40, and A-V dissociation. Lab work exam showed a normal potassium of 4.3, magnesium of 2.5, and normal TSH. Cardiology recommends dual chamber pacemaker. Pt will be transferred to [facility] for pacemaker placement. Dedicated d/c time 34 min Disposition: DC/TX- [facility] IP Time spent for discharge: 32 - Discharge Diagnoses (1) COPD (chronic obstructive pulmonary disease) Status: Acute (2) Heart block Status: Acute (3) Tobacco use disorder Status: Acute Core Measure Documentation - Palliative Care Palliative Care/ Comfort Measures: Not Applicable - Core Measures Any of the following diagnoses?: none Exam - Constitutional Vitals: Temp Pulse Resp BP Pulse Ox 98 F 38 L 13 110/66 100 09/22/18 19:39 09/23/18 13:00 09/23/18 13:00 09/23/18 13:00 09/23/18 12:00 General appearance: Present: no acute distress, well-nourished - EENT Eyes: Present: PERRL ENT: hearing intact, clear oral mucosa - Neck Neck: Present: supple, normal ROM - Respiratory Respiratory effort: normal Respiratory: bilateral: CTA - Cardiovascular Heart Sounds: Present: S1 & S2. Absent: rub, click - Extremities Extremities: pulses symmetrical, No edema Peripheral Pulses: within normal limits - Abdominal General gastrointestinal: Present: soft, non-tender, non-distended, normal bowel sounds Female genitourinary: Present: normal - Integumentary Integumentary: Present: clear, warm, dry - Musculoskeletal Musculoskeletal: gait normal, strength equal bilaterally - Psychiatric Psychiatric: appropriate mood/affect, intact judgment & insight - Neurologic Neurologic: CNII-XII intact, moves all extremities Plan Activity: advance as tolerated Weight Bearing Status: Weight Bear as Tolerated Diet: regular Follow up with: LUIS DE JESUS MD [Primary Care Provider] - 3-5 Days YASMINE RIDLEY MD [Staff Physician] - 7 Days
[2018-09-23 21:09] VITALS: BP 120/78
== END 2018-09-23 21:10 | disposition short-term general hospital (02) | DRG 309 ==
LOC: ED 17:04 → CC1 19:42 → IMCU 22:40
PROVIDERS: ADMIT Internal Medicine; ATTEND Hospitalist
DX: I44.2 Atrioventricular block, complete (principal); E87.0 Hyperosmolality and hypernatremia; I10 Essential (primary) hypertension; F17.210 Nicotine dependence, cigarettes, uncomplicated; J44.9 Chronic obstructive pulmonary disease, unspecified; E83.41 Hypermagnesemia; Z71.6 Tobacco abuse counseling
CPT/HCPCS: 36415; 71045; 80048; 80053; 81001; 83735; 84100; 84443; 84484; 85027; 85610; 85730; 93005; 93010; 96374; G0378; J7030